=== PATIENT | male | born 1965 | race Caucasian/White ===

== ENCOUNTER → 2017-01-15 | Outpatient (CLI) | payer OTHER ==
[~2017-01-15] MED LIST: ACETAMINOPHEN; ALEVE220 M1 PO; AUGMENTIN PO; CALCIUM CARBONATE PO; CIPROFLOXACIN500 M1 PO; DARVOCET-N 1001 TAB PO; DESCOVY 200-251 EACH PO; EPIVIR150 MG PO; HIV MEDS; HYDROCODONE; KALETRA PO; LORATADINE; LORTAB 7.5-5001 TAB PO; METHOCARBAMOL; NORVIR100 M1 PO; PREZISTA600 MG PO; PRILOSEC PO; PROTONIX PO; ROBAXIN 750750 M1 PO; SYMBICORT INH; TIVICAY50 MG PO; VIAGRA PO; VIREAD300 MG PO; VOLTAREN75 MG PO; XANAX1 MG PO; ZOFRAN PO; ZOLOFT PO; [UNRECOGNIZED DRUG - OTHER]
--- NOTE | ~2017-01-15 | PFT ---
[id number] [facility] [address]. [place], [place] [address] [id number] O MR#: [id number] NAME: ERMELINDA SMALLWOOD ROOM: SEX: M STUDY DATE/TIME: : 1965 AGE: STUDY DESCRIPTION: Attending Physician: Prashant Madsen M.D. Referring Physician: Prashant Madsen M.D. Primary Care Physician: Heidi Cabral A.P.R.N. PULMONARY DIAGNOSTIC REPORT EXAM Pulmonary Function Test DESCRIPTION Spirometry reviewed. FEV1 84, FVC 87, ratio is 75. No significant obstruction, no significant bronchodilator response. Lung volume within normal limits. DLCO is 83%. Dictated by... Branden Godoy/bradley TD: 01/16/2017 07:24 JOB #: [id number] PULMONARY DIAGNOSTIC REPORT
== END | disposition home or self-care (01) ==
LOC: CRC 09:38
DX: J44.9 Chronic obstructive pulmonary disease, unspecified (principal)
CPT/HCPCS: 94060; 94726; 94729

== ENCOUNTER → 2017-02-21 | Outpatient (CLI) | payer OTHER ==
--- NOTE | ~2017-02-21 | CT2 ---
[facility] A Service of [facility] RADIOLOGY TEXT RESULTS PATIENT: ERMELINDA SMALLWOOD LOCATION: [facility] : 65 UNIT #: [id number] AGE: [address]: Enid Holly MD SEX: M ORDER DR: [id number] [place] [id number] O MR#: [id number] Acc #: [id number] NAME: ERMELINDA SMALLWOOD : 1965 SEX: M STUDY DATE/TIME: 02/21/2017 13:35 UNIT: SCT ROOM: STUDY DESCRIPTION: CT Abd and Pelv W Cont Attending Physician: Enid Holly M.D., Ph.D. Referring Physician: Enid Holly M.D., Ph.D. Ordering Physician: Enid Holly M.D., Ph.D. Primary Care Physician: Heidi Cabral A.P.R.N. MEDICAL IMAGING REPORT This report is preliminary unless electronic signature is present. EXAM CT abdomen and pelvis with contrast. INDICATION Right lower lobe lung cancer. Restaging observation for response to therapy and metastatic disease. PROCEDURE Contrast-enhanced CT of the abdomen and pelvis. 100 mL of Isovue-370. This CT exam was performed with one or more of the following radiation dose reduction techniques: automatic exposure control, adjustment of mA and/or kV according to patient size, and iterative reconstruction. COMPARISON 03/27/2009 FINDINGS ABDOMEN WITH CONTRAST: Refer to the separately dictated chest CT for thoracic findings. Right hepatic lobe lesion is stable measuring 1.9 cm. The liver is otherwise unremarkable. The spleen, kidneys, pancreas, and gallbladder are unremarkable. There is a 2.1 cm right adrenal nodule. The bowel loops are nondilated. Normal appendix. No abdominal adenopathy. The right adrenal nodule is larger than on a outside CT performed on 12/09/2016. On that study, it measured approximately 1.8 cm. PELVIS WITH CONTRAST: No pelvic mass or fluid. There is a 1.6 cm sclerotic lesion along the inferior endplate of L3. [facility] A Service of [facility] RADIOLOGY TEXT RESULTS PATIENT: ERMELINDA SMALLWOOD LOCATION: [facility] : 65 UNIT #: [id number] AGE: [address]: Enid Holly MD SEX: M ORDER DR: This is not seen on the previous CT. IMPRESSION 1. Slight interval increase in size of a right adrenal metastasis. 2. 1.6 cm sclerotic lesion in the L3 vertebral body is not seen on the 12/09/[address] Dictated by... Mc Blackwell M.D. THIS IS AN ELECTRONICALLY VERIFIED REPORT Mc Blackwell M.D. at 02/24/2017 9:45 AM OSMAN/tabby TD: 02/21/2017 16:56 JOB #: [id number] MEDICAL IMAGING REPORT Page 1 of 1
--- NOTE | ~2017-02-21 | CT55 ---
[facility] A Service [facility] RADIOLOGY TEXT RESULTS PATIENT: ERMELINDA SMALLWOOD LOCATION: [facility] : 65 UNIT #: [id number] AGE: [address]: Enid Holly MD SEX: M ORDER DR: [id number] [place] [id number] O MR#: [id number] Acc #: [id number] NAME: ERMELINDA SMALLWOOD : 1965 SEX: M STUDY DATE/TIME: 02/21/2017 13:35 UNIT: [facility] ROOM: STUDY DESCRIPTION: CT Chest W Con Attending Physician: Enid Holly M.D., Ph.D. Referring Physician: Enid Holly M.D., Ph.D. Ordering Physician: Enid Holly M.D., Ph.D. Primary Care Physician: Heidi Cabral A.P.R.N. MEDICAL IMAGING REPORT This report is preliminary unless electronic signature is present. EXAM CT chest with contrast INDICATIONS Right lower lobe lung cancer. Staging. Observation for metastatic disease. PROCEDURE Contrast-enhanced CT of the chest. 100 mL Isovue-370. This CT exam was performed with one or more of the following radiation dose reduction techniques: automatic exposure control, adjustment of mA and/or kV according to patient size, and iterative reconstruction. COMPARISON CT of the chest performed at [facility] on 12/09/2016 FINDINGS The lobulated mass in the right lower lobe surrounding the right lower lobe bronchovascular structures measures approximately 2.3 x 1.6 cm. It previously measured 4.6 x 3.1 cm. There is some linear atelectasis in the right lower lobe. Otherwise, the lungs are clear. There is no adenopathy. Osseous metastases described on previous PET/CT from 12/23/2016 are not well seen on this study. IMPRESSION 1. Positive response to therapy. The right lower lobe mass is significantly smaller. 2. No evidence for new metastatic disease to the chest. Dictated by... [facility] A Service [facility] RADIOLOGY TEXT RESULTS PATIENT: ERMELINDA SMALLWOOD LOCATION: [facility] : 65 UNIT #: [id number] AGE: [address]: Enid Holly MD SEX: M ORDER DR: Mc Blackwell M.D. THIS IS AN ELECTRONICALLY VERIFIED REPORT Mc Blackwell M.D. at 02/24/2017 9:45 AM OSMAN/carol TD: 02/21/2017 16:54 JOB #: [id number] MEDICAL IMAGING REPORT Page 1 of 1
== END | disposition home or self-care (01) ==
LOC: SCT 11:39
DX: C34.31 Malignant neoplasm of lower lobe, right bronchus or lung (principal); C34.10 Malignant neoplasm of upper lobe, unspecified bronchus or lung; C79.71 Secondary malignant neoplasm of right adrenal gland
CPT/HCPCS: 71260; 74177; Q9967

== ENCOUNTER 2017-04-03 15:30 | Inpatient (IN) | payer OTHER ==
--- NOTE | ~2017-04-03 | CO ---
Unit #: [id number] #: [id number] Patient: ERMELINDA SMALLWOOD [id number] [facility] [address]. [place], [place] [address] [id number] I MR#: [id number] NAME: ERMELINDA SMALLWOOD. ROOM: 573 Age: 51 Sex: M Admission Date: 04/03/2017 : 1965 Attending Physician: Sana Snyder M.D. Primary Care Physician: Heidi Cabral A.P.R.N. Consultation Date: 04/04/2017 CONSULTATION REPORT REFERRING PHYSICIAN Dr. Raj Hahn. REASON FOR CONSULTATION Tremors and abnormal MRI. PATIENT IDENTIFICATION This is a 51-year-old right-handed white male, who was evaluated in room 573 at [facility]. SOURCE OF INFORMATION The patient, medical records, and my discussion with Dr. Hahn. PROBLEM LIST 1. He has history of HIV. 2. Metastatic lung cancer. 3. Skin cancer. 4. Jenkins's esophagus. 5. 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 HISTORY OF PRESENT ILLNESS This is a 51-year-old gentleman who actually presented to the emergency room with tremors, very coarse tremors, distractible, nothing suggesting seizures, nothing suggesting otherwise ataxia. Because of his condition, it was recommended that he be admitted for further workup and one of the tests that was done was a brain MRI to make sure there is no lesions in areas that can start a tremor-like situation. The study showed that the parenchymal enhancing lesions have essentially resolved, but there was an area of significant abnormality within the sulcus of the right posterior frontal lobe on FLAIR sequences that was concerning for some sort of CSF pathology and also could be infection or carcinomatosis or meningitis, so Dr. Hahn called me and I requested that we can go for a CSF to be absolute and I will followup. When I saw the patient, he had just had CSF analysis done so he was resting. He was awake. He was alert. Very coarse tremor. No real past pointing. No focal weakness. He is awake and he is alert. No history of seizures or other issues. PAST MEDICAL HISTORY As discussed above. PAST SURGICAL HISTORY As discussed above, nothing major otherwise. ALLERGIES Unit #: [id number] #: [id number] Patient: ERMELINDA SMALLWOOD. HOME MEDICATIONS 1. Sertraline 50 mg p.o. daily. 2. Xanax 1 mg p.o. b.i.d. 3. Naproxen 220 mg daily as needed. 4. Tivicay 50 mg daily. 5. Symbicort one puff inhaled daily. 6. Prilosec 40 mg daily. 7. Zofran 4 mg p.o. q.6-8 hours as needed for nausea. 8. Cipro 500 mg p.o. b.i.d. 9. Descovy 200 mg/25 one p.o. daily. SOCIAL HISTORY He is single. I believe there was a significant other. No tobacco. No drug use or alcohol use known to me. REVIEW OF SYSTEMS Tremors, nothing else major otherwise. He is status post surgery. He is status post LP. No recent weight issues, fevers, chills, rigors, sweats. HEENT: No headaches. No double vision, earache, runny nose, sore throat. CARDIOVASCULAR: No chest pain, clubbing, cyanosis, orthopnea, or palpitations. PULMONARY: No shortness of air, cough, or expectoration. GASTROINTESTINAL: No nausea, vomiting, diarrhea, or constipation. GENITOURINARY: No genitourinary symptoms. BACK: No back problem reported to me. PSYCHIATRIC: Issue was depression. NEUROLOGIC: Issue was tremors and brain mets. He is HIV positive. HEMATOLOGIC/DERMATOLOGIC/ENDOCRINE: No other hematologic, dermatologic, or endocrine issues known to me. PHYSICAL EXAMINATION VITAL SIGNS: Temperature 99.7, pulse 75, respirations 18, blood pressure 127/78, O2 saturations were 99%. Weight 208 pounds. BMI was 28. NEUROLOGIC: The patient is awake, alert, oriented x3. Has normal speech. CRANIAL NERVES: Demonstrate full pavon of vision to confrontation. Eye movements are conjugate. I did not see any ptosis. I did not see any nystagmus. Extraocular movements are intact. Sensation of the face and scalp are normal. Strength of muscles of facial expression is normal. Hearing seemed to be intact bilaterally. Tongue was midline. Uvula was midline. Palate elevation was normal. Head turning and shoulder shrugs were unremarkable. MOTOR: Demonstrated normal bulk, tone. Strength was 5-/5 all over. No pronator drift. No fine motor movement abnormalities. SENSORY: Coarse bilateral tremors, both upper and lower extremities. Some had jerking also. No past pointing was seen. GAIT: Deferred. REFLEXES: I could not get any reflexes. Toes were moot. DIAGNOSTIC STUDIES LABORATORY: Random glucose was 86-131. The only other thing that is really important was his white count which was 1.7. RBC count was 2.53. Hemoglobin was 8.3. Hematocrit was 23.8. Platelet count was 49,000 and 38,000. CSF results are pending. IMAGING: Imaging study was reviewed. Unit #: [id number] #: [id number] Patient: ERMELINDA SMALLWOOD This is a very interesting 51-year-old gentleman with a very coarse tremor which is also something that disappears on distraction. The biggest concern right now is to make sure there is no central nervous system pathology, especially with that signal change, so I will wait for the cerebrospinal fluid result and get another CT in the morning. I will try some primidone and see how things go. I do not think these are seizures, so will wait for all the workup and see how things go and treat him based on the findings. Call me for any other questions, issues, or concerns. Dictated by... Branden Tello/lon TD: 04/06/2017 13:52 JOB #: [id number] CONSULTATION REPORT Page 1 of 1 X Oskar Verde MD X CONSULTATION REPORT
--- NOTE | ~2017-04-03 | MR17 ---
[facility] A Service of [facility] RADIOLOGY TEXT RESULTS PATIENT: ERMELINDA SMALLWOOD LOCATION: [facility] [address]-29 : 65 UNIT #: [id number] AGE: [address]: Raj Hahn MD SEX: M ORDER DR: [id number] [facility] [address] [place], [place] [address] [id number] I MR#: [id number] Acc #: [id number] NAME: ERMELINDA SMALLWOOD. : 1965 SEX: M STUDY DATE/TIME: 04/03/2017 21:21 UNIT: [facility] ROOM: 65048 STUDY DESCRIPTION: MR Brain WWo Contrast Attending Physician: Raj Hahn M.D. Ordering Physician: Adrian Galicia M.D. Primary Care Physician: Heidi Cabral A.P.R.N. MRI CENTER REPORT This report is preliminary unless electronic signature is present. EXAM MRI of the brain with and without. HISTORY Weakness, tremors today all over body. Patient fell at 3 p.m. Tremors mainly in the head. Patient has a history of lung cancer since December 2016, which has spread to lower back. Patient is also HIV positive. Small cell lung cancer. Observe for suspected intracranial metastatic disease. TECHNIQUE MRI of the brain was performed prior to and following intravenous administration of 20 mL of MultiHance. There is a comparison study from 12/23/16. FINDINGS There is no evidence for a recent ischemic insult on the diffusion series. Mild disproportionate posterior fossa volume loss is noted. This is similar to previous. The major intracranial flow voids are maintained. There is no extraaxial fluid collection. There is minimal fluid or inflammatory change in the mastoid air cells. Partial opacification right posterior ethmoid air cells. There is mild white matter signal abnormality best appreciated periventricular white matter nonspecific probably due to small vessel disease. Certainly possible in a patient with known HIV that this is a manifestation of HIV encephalopathy. It is likely that the patient has undergone treatment since the prior study and correlation with the treatment course would be recommended. On the prior study, small enhancing masses were noted in the brain parenchyma including the medial left frontal lobe and medial left occipital lobe and cerebellar vermis. Each of these enhancing lesions is now essentially resolved consistent with some response to therapy. These could have been metastases or alternatively could have been involvement with some type of opportunistic infection. Continued imaging followup is recommended. No STS. [facility] A Service of [facility] RADIOLOGY TEXT RESULTS PATIENT: ERMELINDA SMALLWOOD LOCATION: [facility] [address]-14 : [birth year] UNIT #: [id number] AGE: [address]: Raj Hahn MD SEX: M ORDER DR: new enhancing intracranial masses are appreciated. There is no intracranial mass effect. On the FLAIR sequence, there is one linear focus of increased signal intensity about a centimeter in length within the sulcus of the right posterior frontal lobe not seen previously. This is not associated with mass effect and doesn't appear to enhance. It is nonspecific but would raise concern for some type of CSF pathology, and in this patient, consideration should include meningitis. Infectious disease would be in the differential as would early carcinomatous meningitis. I would recommend correlation with CSF sampling if clinically feasible. This appearance is new when comparison is made to the previous study. IMPRESSION 1. In the interval since the study from 12/23/16, it appears that the patient has had some interval therapy. On the prior study there were 3 parenchymal enhancing lesions and these have each resolved. On the current study, there is no new enhancing parenchymal mass suspected. There is, however, one linear area of signal abnormality within the sulcus on the FLAIR sequence at the right posterior frontal lobe. This appearance raises concern for some type of CSF pathology and in this patient, the main concern would be for infectious or carcinomatous meningitis. Lack of enhancement weighs against carcinomatous meningitis, but does not exclude it. Unlikely consideration would be subarachnoid hemorrhage which would be unexpected in the clinical scenario presented. Correlation with CSF sampling is suggested if it is clinically feasible. 2. No recent ischemic insult is suspected. There is no intracranial mass effect. There is again atrophy and mild nonspecific white matter disease. See above. STAT * RESULT Dictated by... Yaquelin Vitale M.D. THIS IS AN ELECTRONICALLY VERIFIED REPORT Yaquelin Vitale M.D. at 04/03/2017 10:36 PM ALKA/minor TD: 04/03/2017 22:18 JOB #: [id number] MRI CENTER REPORT Page 1 of 1 COPY
--- NOTE | ~2017-04-03 | CT71 ---
[facility] A Service [facility] RADIOLOGY TEXT RESULTS PATIENT: ERMELINDA SMALLWOOD LOCATION: [facility] : 65 UNIT #: [id number] AGE: [address]: Sana Snyder MD SEX: M ORDER DR: [id number] [place] [id number] [facility]. [place], [place] [address] [id number] I MR#: [id number] Acc #: [id number] NAME: ERMELINDA SMALLWOOD. : 1965 SEX: M STUDY DATE/TIME: 04/05/2017 10:59 UNIT: [facility] ROOM: 3 STUDY DESCRIPTION: CT Head Wo Contrast Attending Physician: Sana Snyder M.D. Ordering Physician: Oskar Verde M.D. Primary Care Physician: Heidi Cabral A.P.R.N. MEDICAL IMAGING REPORT This report is preliminary unless electronic signature is present EXAM CT scan of the head without contrast HISTORY Weakness. Tremor. Patient is on chemotherapy. COMPARISON STUDIES 04/03/2017. TECHNIQUE Unenhanced images were obtained through the brain. This CT exam was performed with one or more of the following radiation dose reduction techniques: automatic exposure control, adjustment of mA and/or kV according to patient size, and iterative reconstruction. FINDINGS There is no mass or extraaxial fluid collection or hemorrhage. There has been no change. IMPRESSION Normal unenhanced head CT scan. No change since 04/03/2017. Dictated by... Too Presley M.D. THIS IS AN ELECTRONICALLY VERIFIED REPORT Too Presley M.D. at 04/06/2017 7:02 AM FEL/pcl [facility] A Service [facility] RADIOLOGY TEXT RESULTS PATIENT: ERMELINDA SMALLWOOD LOCATION: [facility] : [birth year] UNIT #: [id number] AGE: [address]: Sana Snyder MD SEX: M ORDER DR: TD: 04/05/2017 20:18 JOB #: [id number] MEDICAL IMAGING REPORT Page 1 of 1 COPY
--- NOTE | ~2017-04-03 | CO ---
Unit #: [id number] #: [id number] Patient: ERMELINDA SHAH [id number] [address] [place], [place] [address] [id number] I MR#: [id number] NAME: ERMELINDA SHAH. ROOM: 573 Age: 51 Sex: M Admission Date: 04/03/2017 : 1965 Attending Physician: Sana Snyder M.D. Primary Care Physician: Heidi Cabral A.P.R.N. CONSULTATION REPORT HISTORY OF PRESENT ILLNESS Mr. Shah is a very pleasant gentleman, he is 51-year-old with diagnosis of HIV, metastatic small-cell lung cancer with lumbar spine and brain metastases, presented to his oncologist office with a tremor. The tremor that he has was a fine motor tremor, generalized, but it was not focal, did not look like seizure. He had an evaluation by Neurology and really did not look like he is having seizure activity. Certainly, this could be related to treatment, it could be related to pain medications. We talked about it could be related to anxiety medications and it could be just a benign essential tremor. Having this stated it did not look like he is having seizures. I reviewed his labs with him and his hemoglobin is low, but stable. He is clinically asymptomatic with this current hemoglobin and we have talked about risk factors including chest pain, which he denies. We have talked about shortness of breath, which he denies. We have talked about blood per rectum, which he denies. We have talked about bleeding and melena, he denies all of that and so since he is stable I think that we can check some iron studies, retic, and haptoglobin. Bring him back to clinic next week to get checked to make sure that he does not need some iron or other treatment. PAST MEDICAL HISTORY Significant for HIV, Jenkins esophagus, skin cancer, small cell lung cancer with lumbar spine and brain metastases. PAST SURGICAL HISTORY None. SOCIAL HISTORY No alcohol. No tobacco. No illicit drug use. FAMILY HISTORY Negative for seizures. Negative for reported malignancy in first-degree relatives. ALLERGIES Demerol. MEDICATIONS Include Xanax, sertraline, naproxen, Tivicay, Symbicort, Prilosec, Zofran, Cipro, Descovy. REVIEW OF SYSTEMS Twelve points really negative except for the current tremor that we talked Unit #: [id number] #: [id number] Patient: ERMELINDA SHAH. PHYSICAL EXAMINATION VITAL SIGNS: Shows temperature 97.5, pulse 83, blood pressure 133/76. HEENT: Eyes shows no scleral icterus. Pupils are equal. Mouth is moist. Hearing is intact. NECK: Shows normal JVP. Trachea midline. LUNGS: Clear. Symmetric chest expansion. HEART: Regular rate and rhythm. ABDOMEN: Benign. LYMPH: No adenopathy. SKIN: No rashes. NEURO: Awake, alert, and oriented to person and time. Normal judgment, affect and insight. He has a very fine tremor, it looks like essential tremor, symmetric, nonfocal and he is perfectly laid. DIAGNOSTIC STUDIES LABORATORY RESULTS: Laboratory studies have been reviewed and he is otherwise stable. ASSESSMENT Very pleasant gentleman with fine tremors. We talked about this as a wide differential. 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 PLAN To check some baseline labs. After careful follow up, I have reviewed with the patient and his family things to look for and he is going to follow up in clinic on Friday or Friday. I would like to thank you for the consult. Dictated by... Alber Pierre M.D. EUGENE/surjit TD: 04/06/2017 23:19 JOB #: [id number] CONSULTATION REPORT Page 1 of 1 X X CONSULTATION REPORT
--- NOTE | ~2017-04-03 | CT71 ---
[facility] A Service [facility] RADIOLOGY TEXT RESULTS PATIENT: ERMELINDA SMALLWOOD LOCATION: [facility] 573-01 : [birth year] UNIT #: [id number] AGE: [address]: Raj Hahn MD SEX: M ORDER DR: [id number] [facility] [address] [place], [place] [address] [id number] I MR#: [id number] Acc #: [id number] NAME: ERMELINDA SMALLWOOD. : 1965 SEX: M STUDY DATE/TIME: 04/03/2017 17:09 UNIT: [facility] ROOM: 68240 STUDY DESCRIPTION: CT Head Wo Contrast Attending Physician: Raj Hahn M.D. Ordering Physician: Adrian Galicia M.D. Primary Care Physician: Heidi Cabral A.P.R.N. MEDICAL IMAGING REPORT This report is preliminary unless electronic signature is present EXAM CT brain without contrast, 04/03/2017 COMPARISON STUDIES 10/15/2014. HISTORY SUPPLIED Shaking, off balance for 2 hours today. History of melanoma and small cell lung cancer. TECHNIQUE Axial imaging of the brain was performed without contrast media. Bone and soft tissue windows are reviewed. This CT exam was performed with one or more of the following radiation dose reduction techniques: automatic exposure control, adjustment of mA and/or kV according to patient size, and iterative reconstruction. FINDINGS The study does show some asymmetry of the lateral ventricles with some dilatation of the atrium of the left lateral ventricle. This appearance has not changed. No mass lesions, mass effect hemorrhage or edema. No intra or extraaxial fluid collections are seen. No lytic or blastic lesions are identified within the bony calvarium. CONCLUSION Pretracheal ventricular asymmetry, unchanged. No acute intracranial findings Dictated by... Max Solis M.D. [facility] A Service [facility] RADIOLOGY TEXT RESULTS PATIENT: ERMELINDA SMALLWOOD LOCATION: [facility] 573-01 : [birth year] UNIT #: [id number] AGE: [address]: Raj Hahn MD SEX: M ORDER DR: THIS IS AN ELECTRONICALLY VERIFIED REPORT Max Solis M.D. at 04/04/2017 6:07 PM Rico TD: 04/03/2017 23:22 JOB #: [id number] MEDICAL IMAGING REPORT Page 1 of 1 COPY
--- NOTE | ~2017-04-03 | DS ---
Unit #: [id number] #: [id number] Patient: ERMELINDA SHAH [id number] [address] [address] [id number] I MR#: [id number] NAME: ERMELINDA SHAH. ROOM: 573 Age: 51 Sex: M Admission Date: 04/03/2017 : 1965 Discharge Date: 04/05/2017 Attending Physician: Sana Snyder M.D. Primary Care Physician: Heidi Cabral A.P.R.N. DISCHARGE SUMMARY PRINCIPAL DIAGNOSES 1. Tremor of undetermined etiology; however, he is improved with distraction. 2. Chemotherapy-induced pancytopenia. 3. Human immunodeficiency virus with reported CD4 count of 700. 4. 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 Brain metastases now resolved. 5. Gastroesophageal reflux disease with associated Jenkins's esophagitis. 6. Anxiety with depression. 7. Deconditioning. CONSULTANTS 1. Dr. Pierre, Oncology. 2. Dr. Verde, Neurology. 3. Dr. Benites, Infectious Disease. PROCEDURES 1. Chest x-ray on April 03, 2017 with no acute findings. 2. CT of the head without contrast on April 03, 2017 with pretracheal ventricular asymmetry that is stable. 3. CT of the brain without contrast on April 03, 2017 with asymmetry of the lateral ventricles with dilatation of the left lateral ventricle. This is unchanged. 4. MRI of the brain with and without contrast on April 03, 2017: There is resolution of three parenchymal enhancing lesions that were present in December of 2014. Questionable area of linear abnormality within the focus on the FLAIR sequence in the right posterior frontal lobe. 5. Lumbar puncture on April 04, 2017: Results were all negative for infection. 6. CT of the head without contrast on April 05, 2017 with no focal findings. CLINICAL HISTORY AND HOSPITAL COURSE Mr. Shah is a 51-year-old male, who presents to the emergency department with the abrupt onset of tremor that was all over, most pronounced in the upper extremities and head. CT of the head was unremarkable in the emergency department and patient was admitted for further evaluation. Given patient's recent chemotherapy and history of HIV with self reported CD4 count of 700, there were concerns that perhaps underlying infection was the source of patient's symptoms. He underwent MRI of the brain with findings as noted and subsequently underwent lumbar puncture. Infectious Unit #: [id number] #: [id number] Patient: ERMELINDA SHAH workup has been negative. Antibiotics have been discontinued. He has remained afebrile throughout hospitalization. Patient was seen in consultation by neurology given these findings. The tremor has improved without any medications and when distracting patient, the tremor completely resolves. I have evaluated patient's home medications including his HAART meds and none of these are associated with tremor. I think perhaps this might be anxiety induced versus chemotherapy induced. Currently evaluating evaluation by oncology. Patient is pancytopenic but I think this can safely be treated with perhaps some Granix and then be discharged home later today, which is patient's desire. The patient was seen by PT but is refusing rehab, though he is significantly weak. DISCHARGE CONDITION Stable. DISCHARGE STATUS Discharge to home. DISCHARGE MEDICATIONS 1. Symbicort 160/4.5 mcg one puff daily. 2. Primidone 50 mg at bedtime. 3. Zoloft 50 mg at bedtime. 4. Zofran 4 mg p.o. q.8 hours p.r.n. for nausea. 5. Tivicay 50 mg daily. 6. Descovy 200/25 mg one daily. 7. Xanax 1 mg half tablet b.i.d. 8. Aleve 220 mg p.o. daily p.r.n. for pain. 9. Omeprazole 40 mg daily. 10. Ciprofloxacin ER 500 mg b.i.d. DISCHARGE INSTRUCTIONS 1. The patient was instructed to follow a regular diet. 2. He can increase his activity as tolerated. FOLLOWUP 1. The patient will follow up with his primary oncologist, Dr. Enid Holly next week. 2. Will follow up with Dr. Julito Shah of outpatient neurology regarding his tremor. Time spent on discharge, 34 minutes. Dictated by... Sana Snyder M.D. CHRISTINA/lon TD: 04/07/2017 12:25 JOB #: [id number] Unit #: [id number] #: [id number] Patient: ERMELINDA SHAH DISCHARGE SUMMARY Page 1 of 1 X Sana Snyder MD DISCHARGE SUMMARY
--- NOTE | ~2017-04-03 | HP ---
Unit #: [id number] #: [id number] Patient: ERMELINDA SMALLWOOD [id number] [address] [address] [id number] I MR#: [id number] NAME: ERMELINDA SMALLWOOD. ROOM: 573 Age: 51 Sex: M Admission Date: 04/03/2017 : 1965 Attending Physician: Raj Hahn M.D. Primary Care Physician: Heidi Cabral A.P.R.N. HISTORY AND PHYSICAL HISTORY OF PRESENT ILLNESS The patient is a 51-year-old male with HIV and metastatic small cell lung cancer with lumbar spine and brain metastases who presented to his oncologist's office after development of a tremor. He states that he awoke the morning of presentation in his usual state of health. At some point, a few hours prior to presentation, he developed a fine, all-over tremor. It is most pronounced in his upper extremities and head. He states that he is completely unable to control it. From his primary oncologist's office, he was sent to the emergency department. Since arriving in the ED, the patient states that he has begun to feel "really bad." The patient denies fevers, chills, pain. There is no chest pain or shortness of breath. No headache. No alleviating factors at this time. PAST MEDICAL HISTORY 1. HIV. 2. Jenkins esophagus. 3. Skin cancer. 4. Small cell lung cancer with lumbar spine and brain metastases. PAST SURGICAL HISTORY None. SOCIAL HISTORY No tobacco, alcohol or illicit drug use. FAMILY HISTORY Reviewed and not contributory. ALLERGIES Demerol. HOME MEDICATIONS 1. Sertraline 50 mg p.o. daily. 2. Xanax 1 mg p.o. b.i.d. 3. Naproxen 220 mg daily as needed. 4. Tivicay. 50 mg daily. 5. Symbicort 1 puff inhaled daily. 6. Prilosec 40 mg daily. 7. Zofran 4 mg p.o. q.6-8 hours as needed for nausea. 8. Cipro 500 mg p.o. b.i.d. 9. Descovy 200/25 mg 1 p.o. daily. REVIEW OF SYSTEMS A 10-point review of systems was obtained; negative except as per HPI. Unit #: [id number] #: [id number] Patient: ERMELINDA SMALLWOOD PHYSICAL EXAMINATION VITAL SIGNS: Temperature 97.5, pulse 83, blood pressure 133/76. GENERAL: A 51-year-old male in no acute distress who appears stated age. HEENT: Pupils are equally round. Extraocular movements intact. Mucous membranes dry. NECK: Supple. No JVD. No lymphadenopathy. CARDIAC: Regular rate and rhythm. No murmurs, gallops or rubs. LUNGS: Clear to auscultation bilaterally. ABDOMEN: Nontender, nondistended. Positive bowel sounds. EXTREMITIES: No clubbing, cyanosis or edema. They are warm and dry. PSYCHIATRIC: Alert and oriented x3. Affect is appropriate. NEUROLOGIC: The patient does, indeed, have a tremor, which looks almost like rigors in a febrile patient. It waxes and wanes but never goes away. Cranial nerves II-XII are intact grossly. The patient is able to move all extremities equally and with purpose. SKIN: No rashes, bruises or ulcers. MUSCULOSKELETAL: No muscle or joint pain. No muscle or joint swelling. DIAGNOSTIC STUDIES LABORATORIES: Glucose 131, potassium 3.4; otherwise, chem-7 is normal. CBC - White count is 1.7, hemoglobin 8.3, platelets 49. IMAGING: MRI of the brain has been ordered. CT head shows no acute findings. Chest x-ray is without acute findings. ASSESSMENT AND PLAN 1. New tremor. As mentioned above, this patient appears to have an almost febrile-type shaking/rigors without the fever. My initial concern upon seeing the patient is that he has an occult infection. Given the suppression of his immune system by his chemotherapy and/or HIV, this could, perhaps, stunt an appropriate immune response. I have gone ahead and started the patient on empiric antibiotics. Should the patient not become acutely ill, the patient may ultimately require neurology consult. MRI of the head has been ordered but not done at this time. 2. Metastatic lung cancer. Most recent MRI result apparently shows resolution of brain metastasis. This report is given by the patient. As mentioned, repeat MRI is pending. I will consult hematology/oncology. 3. HIV. The patient does appear to be on HAART therapy, and a consult will be placed to infectious disease. 4. Hypertension. I will hold the patient's antihypertensives for now. 5. Prophylaxis. Patient will be started on SCDs, and Lovenox will be avoided, given history of brain metastasis. Dictated by Branden Louie/junie TD: 04/04/2017 15:42 Unit #: [id number] #: [id number] Patient: ERMELINDA SMALLWOOD JOB #: [id number] HISTORY AND PHYSICAL Page 1 of 1 X Raj Hahn MD X HISTORY AND PHYSICAL
--- NOTE | ~2017-04-03 | EKG ---
PATIENT: ERMELINDA SMALLWOOD UNIT #: [id number] Ventricular Rate: 70 BPM Atrial Rate: 70 BPM P-R Interval: 138 ms QRS Duration: 90 ms Q-T Interval: 410 ms QTC Calculation(Bezet): 442 ms P [place]: 70 degrees Calculated R [place]: 38 degrees Calculated T [place]: 69 degrees Diagnosis Line: Normal sinus rhythm Diagnosis Line: Nonspecific ST abnormality Diagnosis Line: Abnormal ECG Diagnosis Line: No previous ECGs available Diagnosis Line: Confirmed by JORDAN PETERSON MD ([id number]) on Diagnosis Line: 04/05/2017 1:13:25 PM INTERPRETING MD: REBEL
--- NOTE | ~2017-04-03 | CR72 ---
[facility] A Service of [facility] RADIOLOGY TEXT RESULTS PATIENT: ERMELINDA SMALLWOOD LOCATION: [facility] [place] [facility] 5701-01 : [birth year] UNIT #: [id number] AGE: [address]: Sana Snyder MD SEX: M ORDER DR: [id number] [facility] [address] [place], [place] [address] [id number] I MR#: [id number] Acc #: [id number] NAME: ERMELINDA SMALLWOOD. : 1965 SEX: M STUDY DATE/TIME: 04/03/2017 16:28 UNIT: [facility] ROOM: 70761 STUDY DESCRIPTION: CR Chest Single View Portable Attending Physician: Raj Hahn M.D. Ordering Physician: Adrian Galicia M.D. Primary Care Physician: Heidi Cabral A.P.R.N. MEDICAL IMAGING REPORT This report is preliminary unless electronic signature is present EXAM Portable chest x-ray 04/03/2017. HISTORY Shaking, short of air today. Small cell lung and bone cancer. FINDINGS AP radiograph of the chest is presented. COMPARISON STUDIES CT chest dated 02/21/2017. FINDINGS Right-sided chest port unchanged. Mild cardiac enlargement stable. No acute bony abnormality. Lung volumes low. Mild central bronchovascular crowding. There is no evidence of pulmonary edema or pneumonia. Right lower lobe hilar/infrahilar nodule seen on prior CT examination not clearly identified on this study and best further evaluated with repeat CT if felt clinically warranted. No new suspicious nodules are seen. Note made of bilateral nipple jewelry. No pleural effusion. No pneumothorax. Dictated by... Max Keyes M.D. THIS IS AN ELECTRONICALLY VERIFIED REPORT Max Keyes M.D. at 04/05/2017 10:29 PM DIONTE/héctor TD: 04/03/2017 23:10 JOB #: [id number] [facility] A Service of [facility] RADIOLOGY TEXT RESULTS PATIENT: ERMELINDA SMALLWOOD LOCATION: [facility] [place] [facility] 5701-01 : [birth year] UNIT #: [id number] AGE: [address]: Sana Snyder MD SEX: M ORDER DR: MEDICAL IMAGING REPORT Page 1 of 1 COPY
--- NOTE | ~2017-04-03 | XA198 ---
[facility] A Service [facility] RADIOLOGY TEXT RESULTS PATIENT: ERMEILNDA SMALLWOOD LOCATION: [facility] 573-01 : [birth year] UNIT #: [id number] AGE: [address]: Sana Snyder MD SEX: M ORDER DR: [id number] [address] [place], [place] [address] [id number] I MR#: [id number] Acc #: [id number] NAME: ERMELINDA SMALLWOOD. : 1965 SEX: M STUDY DATE/TIME: 04/04/2017 15:57 UNIT: [facility] ROOM: [facility] STUDY DESCRIPTION: XA Spinal Puncture Attending Physician: Raj Hahn M.D. Ordering Physician: Raj Hahn M.D. Primary Care Physician: Heidi Cabral A.P.R.N. MEDICAL IMAGING REPORT This report is preliminary unless electronic signature is present EXAM Fluoroscopically-guided lumbar puncture INDICATIONS 51-year-old male with history of new onset tremor. Fluoroscopy time 0.6 minutes. Reference air kerma is 59 mGy. The risks, benefits, and alternatives of the procedure were discussed with the patient and informed consent was obtained. In the procedure room, a time out was performed confirming correct patient and procedure. All elements of maximum sterile-barrier technique utilized according to guidelines appropriate for the procedure. TECHNIQUE/FINDINGS Patient was placed in the prone position on the fluoroscopy table. The skin overlying the lumbar spine was prepped and draped in the usual sterile fashion. 1% lidocaine was utilized to anesthetize the skin and underlying subcutaneous tissues. Next under fluoroscopic guidance, a 20-gauge needle was advanced into the subarachnoid space at the L4-L5 level and 12 mL of clear CSF was removed and sent for the requested labs. The needle was removed and a sterile dressing was applied. No immediate complications. IMPRESSION Technically successful fluoroscopically-guided lumbar puncture. Dictated by... Fermin Bonds M.D. THIS IS AN ELECTRONICALLY VERIFIED REPORT [facility] A Service [facility] RADIOLOGY TEXT RESULTS PATIENT: ERMELINDA SMALLWOOD LOCATION: [facility] 573-01 : [birth year] UNIT #: [id number] AGE: [address]: Sana Snyder MD SEX: M ORDER DR: Fermin Bonds M.D. at 04/05/2017 5:15 PM ARS/pcl TD: 04/04/2017 23:34 JOB #: [id number] MEDICAL IMAGING REPORT Page 1 of 1 COPY
[~2017-04-03 15:30] MED LIST changes: -ALEVE220 M1 PO; -CIPROFLOXACIN500 M1 PO; -DESCOVY 200-251 EACH PO; -SYMBICORT INH; -TIVICAY50 MG PO; -XANAX1 MG PO; -ZOFRAN PO; -ZOLOFT PO
[2017-04-03 16:31] LABS: POC - CKMB <1.0 ng/mL (0.0-7.9); POC - TROPONIN <0.05 ng/mL (<=0.05)
[2017-04-03] MEDS ORDERED: CIPROFLOXACIN500 M1 PO (16:39)
[2017-04-03] MEDS ORDERED: DESCOVY 200-251 EACH PO (16:39)
[2017-04-03] MEDS ORDERED: PRILOSEC PO (16:40)
[2017-04-03] MEDS ORDERED: ZOFRAN PO (16:40)
[2017-04-03] MEDS ORDERED: SYMBICORT INH (16:41)
[2017-04-03] MEDS ORDERED: TIVICAY50 MG PO (16:41)
[2017-04-03] MEDS ORDERED: ALEVE220 M1 PO (16:42)
[2017-04-03] MEDS ORDERED: XANAX1 MG PO (16:42)
[2017-04-03] MEDS ORDERED: ZOLOFT PO (16:42)
[2017-04-03 16:51] LABS: PARTIAL THROMBOPLASTIN TIME 26.4 SECONDS (23.5-31.3); PROTHROMBIN TIME (PATIENT) 10.3 SECONDS (9.6-11.5)
[2017-04-03 16:53] LABS: HEMATOCRIT 23.8 % (38.0-50.0); HEMOGLOBIN 8.3 gm/dL (13.0-16.0); LYMPHOCYTE# 0.7 X10e3 (1.0-3.5); LYMPHOCYTE% 44.8 % (17.0-45.0); MEAN CORPUSCULAR HEMOGLOBIN 32.9 PG (28-34); MEAN PLATELET VOLUME 10.5 FL (6.5-11.5); MONOCYTE# 0.1 X10e3 (0-1.0); MONOCYTE% 7.3 % (3.0-12.0); NEUTROPHIL# 0.8 X10e3 (1.5-7.1); NEUTROPHIL% 45.9 % (40-75); RED BLOOD COUNT 2.53 X10e (3.90-5.60); RED CELL DISTRIBUTION WIDTH 16.2 % (11.0-15.5); WHITE BLOOD COUNT 1.7 X10e3 (4.0-10.5)
[2017-04-03 17:04] LABS: ALBUMIN SERUM 4.4 g/dL (3.5-5.0); BILIRUBIN, DIRECT 0.2 mg/dL (0.0-0.2); BILIRUBIN,TOTAL 1.2 mg/dL (0.2-2.0); BUN/CREATININE RATIO 11.25; CALCIUM SERUM 8.8 mg/dL (8.4-10.2); CREATININE SERUM 0.8 mg/dL (0.6-1.4); DIFF IND YES; GLOM FILT RATE Estimated 103.5 mL/min (>60); PLATELET COUNT 49 X10e3 (140-420); POTASSIUM 3.4 mmol/L (3.5-5.1); PROTEIN TOTAL SERUM 6.8 g/dL (6.0-8.3)
[2017-04-03 17:05] LABS: PLATELET ESTIMATE DECREASED (NORMAL); RBC NORMAL YES
[2017-04-03 17:06] LABS: ANISOCYTOSIS SL; POIKILOCYTOSIS SL
[2017-04-03 18:55] LABS: POC - CKMB <1.0 ng/mL (0.0-7.9); POC - TROPONIN <0.05 ng/mL (<=0.05)
[2017-04-03 18:58] LABS: URINE SOURCE CLEAN CATCH
[2017-04-03 19:11] LABS: URINE APPEARANCE CLEAR; URINE BILIRUBIN NEG (NEG); URINE BLOOD NEG (NEG); URINE COLOR YELLOW; URINE GLUCOSE NEG (NEG); URINE KETONE NEG (NEG); URINE LEUKOCYTE ESTERASE NEG (NEG); URINE NITRATE NEG (NEG); URINE PH 7.5 (5-8); URINE PROTEIN NEG (NEG); URINE SPECIFIC GRAVITY 1.009 (1.003-1.035); URINE UROBILINOGEN 0.2 MG/DL (NEG)
[2017-04-03 19:17] LABS: CULTURE INDICATED? NO
[2017-04-04 15:42] LABS: HEMATOCRIT 22.4 % (38.0-50.0); HEMOGLOBIN 7.8 gm/dL (13.0-16.0); MEAN CELL VOLUME 95.2 FL (83-96); MEAN CORPUSCULAR HEMOGLOBIN 33.1 PG (28-34); MEAN CORPUSCULAR HGB CONC 34.7 g/dL (30-36); MEAN PLATELET VOLUME 11.5 FL (6.5-11.5); RED BLOOD COUNT 2.35 X10e (3.90-5.60); RED CELL DISTRIBUTION WIDTH 15.9 % (11.0-15.5); WHITE BLOOD COUNT 1.8 X10e3 (4.0-10.5)
[2017-04-04 15:54] LABS: ALBUMIN SERUM 4.1 g/dL (3.5-5.0); BILIRUBIN,TOTAL 1.3 mg/dL (0.2-2.0); BUN/CREATININE RATIO 7.5; CALCIUM SERUM 8.2 mg/dL (8.4-10.2); CREATININE SERUM 0.8 mg/dL (0.6-1.4); GLOM FILT RATE Estimated 103.5 mL/min (>60); POTASSIUM 3.8 mmol/L (3.5-5.1); PROTEIN TOTAL SERUM 6.3 g/dL (6.0-8.3)
[2017-04-04 17:03] LABS: GLUCOSE-CSF 54 mg/dL (50-80); PROTEIN-CSF 24 mg/dL (15-45)
[2017-04-04 17:47] LABS: CSF TUBE NUMBER 4
[2017-04-04 17:48] LABS: CSF APPEARANCE CLEAR (CLEAR); CSF LYMPHOCYTE 0 %; CSF MONOCYTE 0 %; CSF NEUTROPHIL 0 %; CSF RBC 0 CMM (0); CSF XANTHACHROMIC NO
[2017-04-04 17:49] LABS: CSF WBC 0 CMM (0-8)
[2017-04-05 07:23] LABS: HEMATOCRIT 20.9 % (38.0-50.0); HEMOGLOBIN 7.3 gm/dL (13.0-16.0); MEAN CORPUSCULAR HEMOGLOBIN 33.5 PG (28-34); MEAN CORPUSCULAR HGB CONC 34.9 g/dL (30-36); MEAN PLATELET VOLUME 11.8 FL (6.5-11.5); RED BLOOD COUNT 2.17 X10e (3.90-5.60); RED CELL DISTRIBUTION WIDTH 16.2 % (11.0-15.5); WHITE BLOOD COUNT 1.7 X10e3 (4.0-10.5)
[2017-04-05 07:51] LABS: ALBUMIN SERUM 3.5 g/dL (3.5-5.0); BILIRUBIN,TOTAL 1.3 mg/dL (0.2-2.0); BUN/CREATININE RATIO 7.77; CALCIUM SERUM 8.5 mg/dL (8.4-10.2); CREATININE SERUM 0.9 mg/dL (0.6-1.4); GLOM FILT RATE Estimated 98.5 mL/min (>60); POTASSIUM 3.6 mmol/L (3.5-5.1); PROTEIN TOTAL SERUM 5.5 g/dL (6.0-8.3)
[2017-04-16 16:26] LABS: CD4 % (PNL) 41.35
== END 2017-04-05 18:40 | disposition home health service (06) | DRG 91 ==
LOC: CED 15:30 → CEDOF 19:52 → CED 20:03 → C5C 04-04 13:40
PROVIDERS: Emergency Medicine; Internal Medicine
PROC: 009U3ZX Drainage of Spinal Canal, Percutaneous Approach, Diagnostic (ICD-10-PCS; principal; 2017-04-04)
PROC: B01B1ZZ Fluoroscopy of Spinal Cord using Low Osmolar Contrast (ICD-10-PCS; 2017-04-04)
DX: R25.1 Tremor, unspecified (principal); D61.810 Antineoplastic chemotherapy induced pancytopenia; C79.51 Secondary malignant neoplasm of bone; B20 Human immunodeficiency virus [HIV] disease; C34.90 Malignant neoplasm of unspecified part of unspecified bronchus or lung; T45.1X5A Adverse effect of antineoplastic and immunosuppressive drugs, initial encounter; Y92.9 Unspecified place or not applicable; K21.9 Gastro-esophageal reflux disease without esophagitis; F41.9 Anxiety disorder, unspecified; F32.9 Major depressive disorder, single episode, unspecified; I10 Essential (primary) hypertension; R93.8 Abnormal findings on diagnostic imaging of other specified body structures; Z85.841 Personal history of malignant neoplasm of brain; Z88.5 Allergy status to narcotic agent
CPT/HCPCS: 36415; 70450; 70553; 71010; 77003; 80048; 80053; 80076; 81003; 82553; 82607; 82728; 82945; 82947; 83010; 83540; 83605; 84157; 84443; 84484; 85025; 85027; 85044; 85610; 85730; 86360; 86361; 87040; 87070; 87205; 89051; 93005; 96361; 96374; 97163; 97165; 97530; 99285; A9577; G8987-GO; G8988-GO; J1200; J1450; J1642; J2405; J2543; J3370

== ENCOUNTER → 2017-04-08 | Outpatient (CLI) | payer OTHER ==
[~2017-04-08] MED LIST changes: +ALEVE220 M1 PO; +CIPROFLOXACIN500 M1 PO; +DESCOVY 200-251 EACH PO; +SYMBICORT INH; +TIVICAY50 MG PO; +XANAX1 MG PO; +ZOFRAN PO; +ZOLOFT PO
--- NOTE | ~2017-04-08 | MR175 ---
[facility] A Service of [facility] RADIOLOGY TEXT RESULTS PATIENT: ERMELINDA SMALLWOOD LOCATION: [facility] : 65 UNIT #: [id number] AGE: [address]: Enid Holly MD SEX: M ORDER DR: [id number] [place] [id number] O MR#: [id number] Acc #: [id number] NAME: ERMELINDA SMALLWOOD. : 1965 SEX: M STUDY DATE/TIME: 04/08/2017 17:47 UNIT: [facility] ROOM: STUDY DESCRIPTION: MR Thoracic WWo Contrast Attending Physician: Enid Holly M.D., Ph.D. Referring Physician: Enid Holly M.D., Ph.D. Ordering Physician: Enid Holly M.D., Ph.D. Primary Care Physician: Heidi Cabral A.P.R.N. MRI CENTER REPORT This report is preliminary unless electronic signature is present. EXAM MRI of the thoracic spine with and without contrast, dated 04/08/17. COMPARISON CT with contrast dated 02/21/17. HISTORY Imbalance, weakness, tremors, all day for 5 days. History of small cell lung cancer and metastasis to the spine. History of HIV and melanoma. FINDINGS Multisequence, multiplanar imaging of the thoracic spine was obtained with and without contrast. GFR measured greater than 60. 20 mL of MultiHance was administered intravenously. There are decreased T1 signal few small lesions noted at T1, T5, T7 and T11 vertebral bodies measuring less than a centimeter. Of them, relatively prominent one is at T1. There is probably minimal enhancement associated with these lesions. There are some small Schmorl nodes in the mid T-spine with mild anterior loss of vertebral body height at T8. It is chronic-appearing without any edema. Mild degenerative disc signal loss is seen at T7-8 and T8-9 levels. at T8-9, there is suspicious tiny central protrusion with only mild adjacent mass effect. Mild bilateral facet hypertrophic changes are also noted at these 2 levels, to a lesser degree at bilateral T6-7 and in the lower thoracic vertebral bodies from T9-10 below. There is borderline-sized canal at T8-9. No significant cord compression or neural foraminal narrowing is seen. No significant bony lesions are noted in the thoracic spine to suggest metastasis. Refer to MRI of the lumbar spine study from the same day which demonstrates important findings. There are some changes noted within the right posterior lower lobe of the lung, incompletely characterized on the current study. It extends from the right inferior hilar region. Refer to CT chest. No significant neural foraminal narrowing or cord compression STS. [facility] A Service of [facility] RADIOLOGY TEXT RESULTS PATIENT: ERMELINDA SMALLWOOD LOCATION: [facility] : 65 UNIT #: [id number] AGE: [address]: Enid Holly MD SEX: M ORDER DR: is seen. IMPRESSION 1. There are decreased T1 signal few small lesions noted at T1, T5, T7 and T11 vertebral bodies measuring less than a centimeter. Of them, relatively prominent one is at T1. In the setting of malignancy, these are suspicious for bony metastases. Refer to MRI of the lumbar spine study which demonstrates larger lesions. 2. No pathological fracture or extraosseous soft tissue components. 3. Minimal chronic anterior wedge compression deformity is suspected at T8 with small Schmorl nodes. It is noted to a lesser degree at T7. Benign incidental chronic compressions. 4. There are changes noted extending from the inferior right hilum to the posterior basal right lower lobe of the lung. It is related to the site of tumor which has been treated. Refer to CT chest from 2 months ago. 5. Mild degenerative disc disease is noted in the mid thoracic spine particularly at T8-9, with suspicious tiny central protrusion, with only mild adjacent mass effect. 6. No significant canal stenosis or cord compression. Dictated by... Gina Hudson M.D. THIS IS AN ELECTRONICALLY VERIFIED REPORT Gina Hudson M.D. at 04/10/2017 4:34 PM CPR/jxi TD: 04/09/2017 20:16 JOB #: [id number] MRI CENTER REPORT Page 1 of 1
--- NOTE | ~2017-04-08 | MR112 ---
[facility] A Service of [facility] RADIOLOGY TEXT RESULTS PATIENT: ERMELINDA SMALLWOOD LOCATION: [facility] : 65 UNIT #: [id number] AGE: [address]: Enid Holly MD SEX: M ORDER DR: [id number] [address] [address] [id number] O MR#: [id number] Acc #: [id number] NAME: ERMELINDA SMALLWOOD. : 1965 SEX: M STUDY DATE/TIME: 04/08/2017 17:19 UNIT: [facility] ROOM: STUDY DESCRIPTION: MR Lumbar WWo Contrast Attending Physician: Enid Holly M.D., Ph.D. Referring Physician: Enid Holly M.D., Ph.D. Ordering Physician: Enid Holly M.D., Ph.D. Primary Care Physician: Heidi Cabral A.P.R.N. MRI CENTER REPORT This report is preliminary unless electronic signature is present. EXAM MRI of the lumbar spine with and without contrast, dated 04/08/17. COMPARISON MRI of the thoracic spine with and without contrast dated 04/08/17, CT abdomen/pelvis with contrast dated 02/21/17, and PET/CT dated 12/23/16. HISTORY Imbalance, weakness, tremors all over the body for 5 days. History of lung cancer diagnosed in December 2016 with mets to the spine. History of HIV and melanoma. Patient fell on 04/03/17. There is a history of small cell lung cancer. FINDINGS Multisequence, multiplanar imaging of the lumbar spine was obtained with and without contrast. 20 mL of MultiHance was administered intravenously. Decreased T1 with increased T2 signal and mild enhancement are noted within lesions from L2-S1. There are multiple lesions with relatively larger one at L2, L3, and S1. In S1, the axial images measure 1.5 x 2.0 cm and has a height of 1.4 cm. These demonstrate sclerotic bony changes in the CT abdomen/pelvis study from 02/21/17 and are most consistent with metastasis. Edematous bony changes are noted in left L4 and L5 vertebral bodies without any obvious pathological fracture. It is difficult to visualize that on the CT from 2 months ago. Vertebral body heights and alignment are preserved. Intervertebral disc heights, signal and alignment are intact. Mild disc bulges are noted from L2-3 to L5-S1. There appears to be associated canal stenosis, slightly pronounced at L3-4 and L4 and 5 levels (mild to moderate). No significant neural foraminal narrowing. Facet changes are noted at multiple levels, severe in the left L5-S1, right L4-5, and to a lesser degree at right L3-4 facet joints. Pre and paravertebral soft tissues do not demonstrate any significant abnormality. [facility] A Service of [facility] RADIOLOGY TEXT RESULTS PATIENT: ERMELINDA SMALLWOOD LOCATION: [facility] : 65 UNIT #: [id number] AGE: [address]: Enid Holly MD SEX: M ORDER DR: IMPRESSION 1. There are multiple bony lesion is noted in the visualized lumbosacral spine. Many of them have associated sclerotic bony changes on CT abdomen/pelvis study from 2 months ago. These are most consistent with metastasis. No associated pathological fracture or extraosseous soft tissue components are seen. 2. There appears to be edema in the left L4 and L5 pedicle. Associated bony lesion/metastasis in this region cannot be excluded though a well-defined lesion is difficult to visualize in the recent CT. Bone edema relating to a microtrabecular injury is next in the differential consideration. One of the bony lesions noted in the anterolateral left iliac bone abutting the left nearby SI joint. 3. Mild degenerative changes are in the spine as described above and with disc bulges. 4. Canal stenosis is suspected at L3-4 and L4-5 without any significant neural foraminal narrowing. 5. Facet degenerative hypertrophic/arthritic changes are noted at some of the levels, relatively worse than right L4-5 and left L5-S1 facet joints. Dictated by... Gina Hudson M.D. THIS IS AN ELECTRONICALLY VERIFIED REPORT Gina Hudson M.D. at 04/10/2017 4:26 PM CPR/jt TD: 04/09/2017 19:47 JOB #: [id number] MRI CENTER REPORT Page 1 of 1
== END | disposition home or self-care (01) ==
LOC: SMRI 16:56
DX: C34.10 Malignant neoplasm of upper lobe, unspecified bronchus or lung (principal); G95.19 Other vascular myelopathies; M89.9 Disorder of bone, unspecified; M47.896 Other spondylosis, lumbar region; M51.86 Other intervertebral disc disorders, lumbar region; M48.06 Spinal stenosis, lumbar region; M51.34 Other intervertebral disc degeneration, thoracic region; Z21 Asymptomatic human immunodeficiency virus [HIV] infection status
CPT/HCPCS: 72157; 72158; A9581

== ENCOUNTER → 2017-06-24 | Outpatient (CLI) | payer OTHER ==
--- NOTE | ~2017-06-24 | CT2 ---
[facility] A Service of [facility] RADIOLOGY TEXT RESULTS PATIENT: ERMELINDA SMALLWOOD LOCATION: [facility] [place] : 65 UNIT #: [id number] AGE: [address]: Enid Holly MD SEX: M ORDER DR: [id number] [address] [address] [id number] O MR#: [id number] Acc #: [id number] NAME: ERMELINDA SMALLWOOD : 1965 SEX: M STUDY DATE/TIME: 06/24/2017 16:08 UNIT: [facility] [place] ROOM: STUDY DESCRIPTION: CT Abd and Pelv W Cont Attending Physician: Enid Holly M.D., Ph.D. Ordering Physician: Enid Holly M.D., Ph.D. Primary Care Physician: Heidi Cabral A.P.R.N. MEDICAL IMAGING REPORT This report is preliminary unless electronic signature is present. EXAM CT of the abdomen and pelvis with contrast. INDICATIONS Minus followup lung cancer. Routine surveillance. TECHNIQUE CT of the abdomen and pelvis was performed following the administration of IV contrast. Coronal and sagittal reformatted images were obtained. This CT exam was performed with one or more of the following radiation dose reduction techniques: automatic exposure control, adjustment of mA and/or kV according to patient size, and iterative reconstruction. COMPARISON Comparison is made with 02/21/2017. FINDINGS Please refer to separately dictated CT of the chest for findings above the diaphragm. There is a stable 1.9 cm low-density lesion within the right lobe of the liver. No new lesions are seen within the liver. The gallbladder is contracted. The spleen is unremarkable. The kidneys are unremarkable. The right adrenal gland contains 2 nodules. There is a nodule more superiorly which has increased in size measuring 2.1 cm. Previously it was about 1.7 cm. More inferiorly, there is a nodule measuring about 2.2 cm, also increased in size from the previous study where it measured about 2.1 cm. There is a tiny 7 mm nodule in the left adrenal gland which is also increased in size. The pancreas is unremarkable. PELVIS: The colon is unremarkable. The appendix is normal. There is no free fluid. No lymphadenopathy. Bone windows show worsening sclerotic STS. [facility] A Service of [facility] RADIOLOGY TEXT RESULTS PATIENT: ERMELINDA SMALLWOOD LOCATION: [facility] [place] : 65 UNIT #: [id number] AGE: [address]: Enid Holly MD SEX: M ORDER DR: osseous metastatic disease within the lumbar spine and the pelvis with development of new sclerotic metastases and increasing sclerosis and some existing metastases. IMPRESSION 1. Interval worsening. 2. Right-sided adrenal nodules have increased in size as has a left-sided adrenal nodule. 3. Interval worsening of osseous metastatic disease within the lumbar spine and pelvis. 4. Stable liver lesion. Dictated by... Fermin Bonds M.D. THIS IS AN ELECTRONICALLY VERIFIED REPORT Fermin Bonds M.D. at 06/25/2017 5:29 PM GINGER/tabby TD: 06/25/2017 11:53 JOB #: [id number] MEDICAL IMAGING REPORT Page 1 of 1
--- NOTE | ~2017-06-24 | CT55 ---
[facility] A Service of [facility] RADIOLOGY TEXT RESULTS PATIENT: ERMELINDA SMALLWOOD LOCATION: [facility] : 65 UNIT #: [id number] AGE: [address]: Enid Holly MD SEX: M ORDER DR: [id number] [place] [id number] O MR#: [id number] Acc #: [id number] NAME: ERMELINDA SMALLWOOD : 1965 SEX: M STUDY DATE/TIME: 06/24/2017 16:18 UNIT: [facility] ROOM: STUDY DESCRIPTION: CT Chest W Con Attending Physician: Enid Holly M.D., Ph.D. Ordering Physician: Enid Holly M.D., Ph.D. Primary Care Physician: Heidi Cabral A.P.R.N. MEDICAL IMAGING REPORT This report is preliminary unless electronic signature is present. EXAM CT of the chest with contrast. INDICATIONS Followup lung cancer. Observation for metastatic disease. Routine surveillance TECHNIQUE CT of the chest was performed without contrast. Coronal and sagittal reformatted images were obtained. This CT exam was performed with one or more of the following radiation dose reduction techniques: automatic exposure control, adjustment of mA and/or kV according to patient size, and iterative reconstruction. COMPARISON 02/21/2017 FINDINGS The nodule within the right lower lobe has decreased in size measuring 1.4 cm on today's study. Previously, it was 2.1 cm. Stable bronchial wall thickening just proximal to the nodule. A lymph node in the right infrahilar region measures 1.9 x 1.4 cm and has increased in size from the previous study where it measured about 1 cm. There is no pleural effusion. Please refer to separately dictated CT of the abdomen and pelvis for findings below the diaphragm. Bone windows show a lesion in the T2 vertebral body which has demonstrated increasing sclerosis. There is also a sclerotic lesion in the tip of the right scapula which is new. Sclerotic lesion in the left side of the manubrium is also new as are lesions in the sternum. IMPRESSION 1. Overall interval worsening. Development of multiple sclerotic metastatic lesions within the thorax. STS. [facility] A Service of [facility] & [facility] RADIOLOGY TEXT RESULTS PATIENT: ERMELINDA SMALLWOOD LOCATION: [facility] : 65 UNIT #: [id number] AGE: [address]: Enid Holly MD SEX: M ORDER DR: 2. Enlargement of a left infrahilar lymph node as described. 3. The lung lesion within the right lower lobe is actually decreased in size. Dictated by... Fermin Bonds M.D. THIS IS AN ELECTRONICALLY VERIFIED REPORT Fermin Bonds M.D. at 06/25/2017 5:29 PM GINGER/tim TD: 06/25/2017 11:59 JOB #: [id number] MEDICAL IMAGING REPORT Page 1 of 1
[2017-06-24 16:15] LABS: POC - CREATININE 1.14 mg/dL (0.64-1.27); POC - GFR >60.0 mL/min (>60)
== END | disposition home or self-care (01) ==
LOC: SCT 06-16 17:00
PROVIDERS: Internal Medicine Hematology & Oncology
DX: C34.10 Malignant neoplasm of upper lobe, unspecified bronchus or lung (principal); C34.31 Malignant neoplasm of lower lobe, right bronchus or lung; C79.51 Secondary malignant neoplasm of bone; J35.8 Other chronic diseases of tonsils and adenoids; K76.9 Liver disease, unspecified; R59.0 Localized enlarged lymph nodes
CPT/HCPCS: 71260; 74177; 82565; Q9967